=== PATIENT | female | born 1980 | race Hispanic/Latino ===

== ENCOUNTER → 2016-07-31 | Outpatient (REF) | payer OTHER | LOC: M SFHCLERA 18:39 | PROVIDERS: ATTEND Nurse Practitioner Family | DX: J06.9 Acute upper respiratory infection, unspecified (principal) ==

== ENCOUNTER 2016-11-23 17:29 | Emergency (ER) | payer OTHER ==
[~2016-11-23] VITALS: Ht 160 cm; Wt 64.5 kg
[2016-11-23] MEDS ORDERED: IBUPROFEN 800 MG TAB PO ONE (18:15)
[2016-11-23] MEDS ORDERED: IBUP-1022 PO (19:11)
[2016-11-23] MEDS ORDERED: BACT800T5 PO (19:11)
[2016-11-23] MEDS ORDERED: ZOFR4TAB3 PO (19:11)
[2016-11-23] MEDS ORDERED: cefTRIAXone SOD 1 GM VIAL (J0696) IM ONE (19:15)
[2016-11-23] MEDS ORDERED: ONDANSETRON 4 MG ORAL DISINTEGRATING TAB (S0181) PO ONE (19:30)
[2016-11-23 19:42] VITALS: BP 116/58
== END 2016-11-23 19:44 | disposition home or self-care (01) ==
LOC: M ED 17:29 → EEVIPCON 17:29 → M ED 19:44
DX: N10 Acute pyelonephritis (principal)
CPT/HCPCS: 81001; 87088; 87186; 96372; 99282; J0696

== ENCOUNTER 2017-02-28 19:07 | Emergency (ER) | payer OTHER ==
[~2017-02-28] VITALS: Ht 160 cm; Wt 65.9 kg
[~2017-02-28 19:07] MED LIST: BACT800T5 PO; IBUP-1022 PO; ZOFR4TAB3 PO
[2017-02-28 19:08] VITALS: BP 102/64
[2017-02-28] MEDS ORDERED: HYDR-643 (19:15)
[2017-02-28] MEDS ORDERED: CETI10TA (19:15)
[2017-02-28] MEDS ORDERED: ONDANSETRON 4 MG ORAL DISINTEGRATING TAB (S0181) PO ONE (20:30)
== END 2017-02-28 20:54 | disposition home or self-care (01) ==
LOC: M ED 19:07
DX: L42 Pityriasis rosea (principal); F33.9 Major depressive disorder, recurrent, unspecified

== ENCOUNTER → 2017-03-14 | Outpatient (CLI) | payer OTHER ==
[2017-03-17 00:10] LABS: MUMPS VIRUS IgM ANTIBODY <0.80 AU (0.00-0.79)
== END ==
LOC: M SMT 14:03
DX: Z23 Encounter for immunization (principal)
CPT/HCPCS: 86762

== ENCOUNTER → 2017-05-17 | Outpatient (CLI) | payer OTHER ==
[2017-05-17 14:24] LABS: C REACTIVE PROTEIN QUANTITATIV < 0.30 MG/DL (0.00-0.30); RHEUMATOID FACTOR QUANT < 10.0 IU/ML (0-15.0)
[2017-05-17 14:51] LABS: ERYTHROCYTE SEDIMENTATION RATE 24 mm/hr (0-20)
[2017-05-17 14:56] LABS: TOTAL 25(OH) VITAMIN D 14.3 NG/ML (30.0-100.0)
[2017-05-21 00:07] LABS: CYCLIC CITRULLINATED PEPTIDE 3 units (0-19)
[2017-05-21 00:07] LABS: ANTINUCLEAR ANTIBODIES DIRECT Negative (Negative); Lyme Disease IgG Ab 18 kDa Ban Absent (.); Lyme Disease IgG Ab 23 kDa Ban Absent (.); Lyme Disease IgG Ab 28 kDa Ban Absent (.); Lyme Disease IgG Ab 30 kDa Ban Absent (.); Lyme Disease IgG Ab 39 kDa Ban Absent (.); Lyme Disease IgG Ab 41 kDa Ban Present (.); Lyme Disease IgG Ab 45 kDa Ban Absent (.); Lyme Disease IgG Ab 58 kDa Ban Absent (.); Lyme Disease IgG Ab 66 kDa Ban Absent (.); Lyme Disease IgG Ab 93 kDa Ban Absent (.); Lyme Disease IgG West Blot Int Negative (.); Lyme Disease IgG/IgM Antibodie 1.44 ISR (0.00-0.90); Lyme Disease IgM Ab 23 kDa Ban Present (.); Lyme Disease IgM Ab 39 kDa Ban Absent (.); Lyme Disease IgM Ab 41 kDa Ban Absent (.); Lyme Disease IgM Ab Quantitati <0.80 index (0.00-0.79); Lyme Disease IgM West Blot Int Negative (.)
== END ==
LOC: M SMT 10:15
DX: M17.9 Osteoarthritis of knee, unspecified (principal); M25.561 Pain in right knee; M25.562 Pain in left knee; E66.3 Overweight
CPT/HCPCS: 84443

== ENCOUNTER → 2017-05-24 | Outpatient (REF) | payer OTHER | LOC: M LAB REF 17:01 | DX: R30.0 Dysuria (principal) | CPT/HCPCS: 87186 ==

== ENCOUNTER 2017-06-05 19:58 | Emergency (ER) | payer OTHER | END 2017-06-05 21:36 | disposition left against medical advice (07) | LOC: M ED 19:58 | DX: R07.9 Chest pain, unspecified (principal); M19.90 Unspecified osteoarthritis, unspecified site; Z79.899 Other long term (current) drug therapy; Z86.19 Personal history of other infectious and parasitic diseases | CPT/HCPCS: 93005 ==

== ENCOUNTER → 2017-06-28 | Outpatient (CLI) | payer OTHER ==
[2017-06-28 14:37] LABS: C REACTIVE PROTEIN QUANTITATIV < 0.30 MG/DL (0.00-0.30)
[2017-06-28 14:37] LABS: RHEUMATOID FACTOR QUANT < 10.0 IU/ML (<15.0)
[2017-06-28 14:42] LABS: ERYTHROCYTE SEDIMENTATION RATE 33 mm/hr (0-20)
[2017-06-30 00:06] LABS: CYCLIC CITRULLINATED PEPTIDE 2 units (0-19)
[2017-06-30 00:06] LABS: ANTINUCLEAR ANTIBODIES DIRECT Negative (Negative); TISSUE TRANSGLUTAMINASE IgA <2 U/mL (0-3); TISSUE TRANSGLUTAMINASE IgG <2 U/mL (0-5)
== END ==
LOC: M SMT 10:28
DX: M17.0 Bilateral primary osteoarthritis of knee (principal); E55.9 Vitamin D deficiency, unspecified
CPT/HCPCS: 86256

== ENCOUNTER → 2017-08-01 | Outpatient (CLI) | payer OTHER ==
[2017-08-01 14:44] LABS: ERYTHROCYTE SEDIMENTATION RATE 28 mm/hr (0-20)
== END ==
LOC: M SMT 09:22
DX: R70.0 Elevated erythrocyte sedimentation rate (principal)
CPT/HCPCS: 36415

== ENCOUNTER 2018-01-15 11:53 | Emergency (ER) | payer OTHER ==
[2018-01-15] MEDS: KETOROLAC 60 MG/2 ML VIAL (J1885) IM (14:11)
[2018-01-15] MEDS: diazePAM 5 MG TAB PO (14:11)
== END 2018-01-15 15:26 | disposition home or self-care (01) ==
LOC: M ED 11:53
DX: M54.41 Lumbago with sciatica, right side (principal); S39.012A Strain of muscle, fascia and tendon of lower back, initial encounter; X50.0XXA Overexertion from strenuous movement or load, initial encounter; Y92.098 Other place in other non-institutional residence as the place of occurrence of the external cause; M79.7 Fibromyalgia; Z79.899 Other long term (current) drug therapy
CPT/HCPCS: J1885